=== PATIENT | female | born 1995 ===

== ENCOUNTER 2018-04-13 22:06 | Emergency (ER) | payer SELFPAY ==
[2018-04-13 22:41] LABS: BARBITUATES NEGATIVE (NEGATIVE); BENZODIAZEPINES NEGATIVE (NEGATIVE); METHADONE NEGATIVE (NEGATIVE); TRICYCLIC ANTIDEPRESSANTS NEGATIVE (NEGATIVE)
[2018-04-13 22:42] LABS: AMPHETAMINES POSITIVE (NEGATIVE); CANNABINOL(THC) POSITIVE (NEGATIVE); COCAINE(COC) NEGATIVE (NEGATIVE); METHAMPHETAMINES POSITIVE (NEGATIVE); OPIATES(OP13) NEGATIVE (NEGATIVE); OXYCODONE(OXY) NEGATIVE (NEGATIVE); PROPOXYPHENE(PPX) NEGATIVE (NEGATIVE)
[2018-04-13] MEDS ORDERED: ACETAZOLAMIDE 500 MG CER PO ONE (23:30)
[2018-04-13] MEDS ORDERED: ACETAMINOPHEN 325 MG PO ONE (23:35)
[2018-04-13 23:37] VITALS: BP 133/82; PULSE 108; RESP 20; TEMP 98; O2SAT 98
[2018-04-13] MEDS ORDERED: ACETAMINOPHEN 500 MG 500 MG TAB ONE (23:53)
== END 2018-04-14 00:05 | DRG 897 ==
LOC: ED 22:06
DX: F15.129 Other stimulant abuse with intoxication, unspecified (principal)
CPT/HCPCS: 80305; 84703; 99282; 99284; A9270-GY